=== PATIENT | male | born 1985 | race Caucasian/White ===

== ENCOUNTER 2021-01-21 17:17 | Emergency (ER) | payer BC ==
[~2021-01-21] VITALS: Ht 175.3 cm; Wt 92.3 kg
[2021-01-21 17:30] VITALS: BP 148/89
[2021-01-21] MEDS ORDERED: HYDR-3965 PO (18:17)
[2021-01-21] MEDS ORDERED: ONDA4TAB6 PO (18:17)
[2021-01-21] MEDS ORDERED: CEPH250T PO (18:17)
== END 2021-01-21 18:50 | disposition home or self-care (01) ==
LOC: ER 17:21
DX: M25.572 Pain in left ankle and joints of left foot (principal); X58.XXXA Exposure to other specified factors, initial encounter; Y93.89 Activity, other specified; Y92.89 Other specified places as the place of occurrence of the external cause; Y99.8 Other external cause status
CPT/HCPCS: 73590; 73610; 99284

== ENCOUNTER 2023-05-11 16:34 | Emergency (ER) | payer BC ==
[~2023-05-11] VITALS: Ht 175.3 cm; Wt 96.4 kg
[~2023-05-11 16:34] MED LIST: ONDA4TAB6 PO
[2023-05-11 22:12] VITALS: PULSE 78
[2023-05-11] MEDS ORDERED: diphenhydrAMINE 50 mg/ml inj IM ONE (22:30)
[2023-05-11] MEDS ORDERED: ketorolac trometh. 30mg/ml inj. IM ONE (22:30)
[2023-05-11] MEDS ORDERED: metoclopramide 5 mg/ml inj IM ONE (22:30)
[2023-05-11 23:30] VITALS: RESP 12
[2023-05-12 00:02] VITALS: BP 148/82; TEMP 98.5; O2SAT 95
== END 2023-05-12 00:04 | disposition home or self-care (01) ==
LOC: ER 16:34
DX: R51.9 Headache, unspecified (principal)
CPT/HCPCS: 70450; 96372; 99285; J1200; J1885; J2765